=== PATIENT | male | born 1960 | race Caucasian/White ===

== ENCOUNTER → 2017-11-16 15:11 | Outpatient (CLI) | payer BC, SELFPAY ==
[2017-11-16 16:01] LABS: Hemoglobin A1c 7.5 % (4.2-6.3)
[2017-11-16 16:06] LABS: BUN 19 mg/dL (7-18); Creatinine, Serum 0.78 mg/dL (0.70-1.30); EST Glomerular Filtration Rate 108 mL/min (>60); Glucose 115 mg/dL (74-106)
[2017-11-16 16:07] LABS: ALB/GLOB Ratio 1.5 RATIO (0.9-2.4); AST(SGOT) 21 U/L (15-37); Alanine Aminotransfer ALT/SGPT 32 U/L (16-61); Alkaline Phosphatase 60 U/L (45-117); Anion Gap 10 (5-15); BUN/Creat Ratio 24.2 RATIO (10-20); Calcium,Total 8.5 mg/dL (8.5-10.1); Chloride 106 mmol/L (98-107); Cholesterol 195 mg/dL (200); Est Glom Filt Rate - Afr Amer 131 mL/min (>60); Globulin 2.6 g/dL (2.2-4.2); High Density Lipoprotein 38 mg/dL; Magnesium 2.1 mg/dL (1.6-2.6); Potassium 4.5 mmol/L (3.5-5.1); Protein, Total 6.6 g/dL (6.4-8.2); Sodium Level 141 mmol/L (136-145); Triglycerides 208 mg/dL; Very Low Density Lipoprotein 42 mg/dL (5-40)
[2017-11-16 16:39] LABS: Microalbumin,Random Urine 11.5 mg/L (NO RANGE EST.); Microalbumin:Creatinine Ratio 5.3 mg/g CRE (<30 mg/g CRE)
== END ==
PROVIDERS: Family Provider Family Medicine; PCP Family Medicine; Visit Provider Family Medicine
DX: E11.9 Type 2 diabetes mellitus without complications (principal); E83.42 Hypomagnesemia
CPT/HCPCS: 80053; 80061; 82043; 82570; 83036; 83735

== ENCOUNTER → 2018-05-10 09:31 | Outpatient (CLI) | payer BC, SELFPAY ==
--- NOTE | 2018-05-10 09:37 | RAD_ITS ---
STUDY: X-RAY - LUMBAR SPINE REASON FOR EXAM: Male, 58 years old. Low back pain for 2 weeks, getting worse with pain radiating down left leg. TECHNIQUE: 5 view(s) of the lumbar spine were obtained. COMPARISON: None FINDINGS: Normal lumbar lordosis. There is no substantial scoliosis. There is a normal alignment of the vertebrae. There is multilevel endplate spondylosis of the lumbar vertebrae. There is moderate narrowing of the L5-S1 intervertebral disc height, and degenerative calcification suggested along the anterior margin of the L1-2 disc space. There is mild anterior wedging of the L1 vertebra, but no displaced fracture. 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 Borderline shortening of the pedicular length is at L2. There are mild multilevel degenerative changes of the lumbar facet articulations. There is mild atherosclerotic calcification of the abdominal aorta. RAD/L/S Spine Min 4 Views IMPRESSION: Degenerative changes of the spine, as detailed above. Mild anterior wedging of the L1 vertebra, age uncertain. Electronically Signed: Johnny Pizano MD at 19:57 EDT , Service support ,
== END ==
PROVIDERS: Family Provider Family Medicine; PCP Family Medicine; Referring Provider Chiropractor; Visit Provider Chiropractor
DX: S33.5XXA Sprain of ligaments of lumbar spine, initial encounter (principal)
CPT/HCPCS: 72110

== ENCOUNTER 2018-08-03 17:30 | Outpatient (RCR) | payer BC, SELFPAY ==
--- NOTE | 2018-05-16 16:06 | HP.PTEVAL ---
Patient's Visit Information AILYN IGLESIAS is a 58 year old M referred to Physical Therapy by Qamar Grewal with a diagnosis of LUMNAR DISC DISPLACEMNT. Date of Evaluation: 05/16/18 Physical Therapist: Francesco Avery, PT, - Visit Plan Frequency: 3x /Week Duration: 4 Weeks Plan: Intially start Aquatic PT for lumbar ROM,FLEXABLITY,strengthening,DLS then reassess - Subjective Subjective: This 58 y/o male presents to physical therapy wtth lumbar disc displacement. Patient has lumbar for many years with HNP. Most ,recently patient developed lumbar pain about 1 1/2 ago May 05 ,but did have slight pain 2weeks prior.Patient developed incidous onset of pain with trauma or injury. Patient has h/o knee arthroscopic menisectomy about Jun 2017. Patient has to use cane. Patient reinjuried left knee with 12 weeks of PT. Patient has also developed right knee pain. Patient has been seeing chiropractor many years. Patient seen DR allred there is a MRI. Patient have to wait 6weeks before MRI. Location of pain lumbar symmtrical buttuck with radular symptoms left leg.Patient c/o pins/needles left foot. Symptoms unable to stand 30 sec ,walking ,bending,lifting. Symptoms some better siiting,MEDS. Coughing/sneezing-. Bowel/bladder -. Pain affects sleeping . Patient pain affects QOL ,ADL'S ,housework activities and job demands. VOCATION: [employer]. SOCIAL: - Pain Bilateral Back Pain Intensity (Out of 10): 6 Pain Intensity Range: 10 Left Lower Extremity Pain Intensity (Out of 10): 9 Pain Intensity Range: 10 - Objective POSTURE: mild foward posture ,right shift lateral,hips knee flexed. GAIT: ambulates with cane antalgic gait foward posture decrease stance time. NEURO: c/o parathesia/tingling left foot ,reflexes L4-5,L5-S1 1/3. SYMMTRIES: align. MMT: quads/hams 4/5 right,left 4-/5,hip flexion 4-/5,dorsiflexion3+/5 ,great toe extensors 4-/5. LUMBAR ROM: flexion mod loss,extension mod loss,extension mod /severe loss,side glides mod loss. FLEXABLITY: min/mod tight hams - Special Tests L/S Slump test left side: Positive L/S Slump test right side: Negative L/S Left Straight Leg Raise: Negative L/S Right Straight Leg Raise: Negative Lumbar Standing: Flexion - Mechanical Response: No effect Lumbar Standing: Flexion - Symptoms During Testing: Increases Lumbar Standing: Flexion - Symptoms After Testing: No worse Lumbar Standing: Extension - Mechanical Response: No effect Lumbar Standing: Extension - Symptoms During Testing: Increases Lumbar Standing: Extension - Symptoms After Testing: Worse Lumbar Standing: Right Side Glides - Mechanical Response: No effect Lumbar Standing: Right Side [place] - Symptoms During Testing: No effect Lumbar Standing: Right Side [place] - Symptoms After Testing: No effect Lumbar Standing: Left Side [place] - Mechanical Response: No effect Lumbar Standing: Left Side [place] - Symptoms During Testing: No effect Lumbar Standing: Left Side [place] - Symptoms After Testing: No effect Lumbar Lying: Flexion - Mechanical Response: No effect Lumbar Lying: Flexion - Symptoms During Testing: Decreases Lumbar Lying: Flexion - Symptoms After Testing: Better Lumbar Lying: Extension - Mechanical Response: No effect Lumbar Lying: Extension - Symptoms During Testing: Increases Lumbar Lying: Extension - Symptoms After Testing: Worse - Goals Goal 1:: Inadependant with HEP and Aquatic program. Goal Time Frame: 4-6 Weeks Goal 2:: Pateint bto be Independant with posture/body mechanics Goal Time Frame: 4-6 Weeks Goal 3:: Patient to decrease lumbar pain by 50% or greater to improve function Goal 4:: Patient to improve lumbar ROM for function of recovery Goal Time Frame: 4-6 Weeks Goal 5:: Patient improve quality of gait with less antlagic gait and improve posture. Goal Time Frame: 4-6 Weeks Goal 6:: Patient be able to perform ADL'S and housework tasks/job demnads with min limiations. Goal Time Frame: 4-6 Weeks - Rehabilitation Potential Rehabilitation Potential: Good - Anticipated Interventions Patient/Client Instruction: Educate patient on: Condition, Plan of Care For the Purpose of:: To decrease pain, To increase ROM, To improve muscle performance and motor function, To improve ability to perform ADL's, To improve performance and independence with ADL's, To improve ability of physical actions for home/community/work/leisure, To improve health of tissue, To decrease soft tissue restriction, To increase flexibility/ROM, To reduce risk of recurrence, To prevent re-injury, To improve ability to perform tasks related to life management Therapeutic Exercise to Include: Strength training, Body mechanics, Postural training, Flexibilty training, In an aquatic setting, Passive ROM, Active ROM, Dynamic Lumbar Stabilization For the Purpose of:: To decrease pain, To increase ROM, To improve muscle performance and motor function, To improve ability to perform ADL's, To increase tolerance to activity/condition/position, To improve ability of physical actions for home/community/work/leisure, To improve health of tissue, To decrease soft tissue restriction, To increase flexibility/ROM, To improve safety with gait, To improve ability to perform tasks related to life management TENS: Yes IF ES: Yes Cryotherapy (ice pack, ice massage): Yes Thermo therapy (hot pack): Yes Ultrasound (thermal/non thermal): Yes For the Purpose of:: To decrease pain, To increase ROM, To improve nutrient delivery to tissue, To increase oxygenation perfusion, To improve health of tissue, To decrease soft tissue restriction, To improve ability to perform tasks related to life management Thank you for the opportunity to evaluate your patient. For Medicare and Medicare HMO plans, please review the plan of care and approve it. It will need to be FAXED BACK to us at [phone] for Medicare purposes. Please let me know if there are questions or concerns regarding this plan of care. Physician Signature: Date:
--- NOTE | 2018-09-11 17:47 | HP.PT.NRP ---
HP - Discharge Summary (1) - Patient Information AILYN IGLESIAS was seen in my office for initial evaluation on 05/16/18. The following Plan of Care was established for this patient: Initial Frequency: 3x /Week Initial Duration: 4 Weeks - Anticipated Interventions Patient/Client Instruction: Educate patient on: Condition, Plan of Care For the Purpose of:: To decrease pain, To increase ROM, To improve muscle performance and motor function, To improve ability to perform ADL's, To improve performance and independence with ADL's, To improve ability of physical actions for home/community/work/leisure, To improve health of tissue, To decrease soft tissue restriction, To increase flexibility/ROM, To reduce risk of recurrence, To prevent re-injury, To improve ability to perform tasks related to life management Therapeutic Exercise to Include: Strength training, Body mechanics, Postural training, Flexibilty training, In an aquatic setting, Passive ROM, Active ROM, Dynamic Lumbar Stabilization For the Purpose of:: To decrease pain, To increase ROM, To improve muscle performance and motor function, To improve ability to perform ADL's, To increase tolerance to activity/condition/position, To improve ability of physical actions for home/community/work/leisure, To improve health of tissue, To decrease soft tissue restriction, To increase flexibility/ROM, To improve safety with gait, To improve ability to perform tasks related to life management TENS: Yes IF ES: Yes Cryotherapy (ice pack, ice massage): Yes Thermo therapy (hot pack): Yes Ultrasound (thermal/non thermal): Yes For the Purpose of:: To decrease pain, To increase ROM, To improve nutrient delivery to tissue, To increase oxygenation perfusion, To improve health of tissue, To decrease soft tissue restriction, To improve ability to perform tasks related to life management This patient was last seen in our office . Pertinent comments regarding their Physical therapy will appear below: Patient had lumbar disectomy thus is d/c and will resume PT with order from DR Sanchez thus is d/c. At this point I will be discontinuing this patient from physical therapy. I would be happy to see this patient again in the future if found appropriate by the physician. Thank you! Francesco Avery, PT, Cert MDT, OCS
== END 2018-08-03 19:00 | disposition home or self-care (01) ==
LOC: PT 17:30
PROVIDERS: Family Provider Family Medicine; PCP Family Medicine; Referring Provider Chiropractor; Visit Provider Chiropractor
DX: M51.26 Other intervertebral disc displacement, lumbar region (principal)
CPT/HCPCS: 97113; 97162; 97530

== ENCOUNTER → 2018-08-23 14:59 | Outpatient (CLI) | payer BC, SELFPAY ==
[2018-08-23 15:22] LABS: Absolute Lymphocyte Count 1.76 X10^3/ul (0.83-4.51); Absolute Neutrophil Count 3.3 X10^3/uL (2.0-7.7); Basophil# 0.01 X10^3/uL; Basophil% 0.2 % (0-1); Eosinophil# 0.11 X10^3/uL; Eosinophils% 1.9 % (0-5); Hematocrit 44.9 % (40-54); Hemoglobin 14.5 g/dl (13.0-16.5); Lymphocyte # 1.76 X10^3/ul (4.0); Lymphocyte % 29.8 % (19-41); Mean Corp Hgb Conc 32.3 g/gl (32-36); Mean Corpuscular Volume 96.1 fL (80-94); Mean Platelet Vol. 9.9 fl (6.2-12.0); Monocyte# 0.73 X10^3/uL; Monocyte% 12.4 % (0-10); Neutrophil # 3.28 X10^3/uL (2.7-7.7); Neutrophil % 55.4 % (47-70); Platelet Count 250 K/mm3 (150-450); RBC Distribution Width CV 13.4 % (11.6-14.6); RBC Distribution Width SD 46.4 fl (35.1-43.9); Red Blood Count 4.67 M/mm3 (4.6-6.2); White Blood Count 5.9 K/mm3 (4.4-11.0)
[2018-08-23 15:31] LABS: ALB/GLOB Ratio 1.2 RATIO (0.9-2.4); AST(SGOT) 13 U/L (15-37); Alanine Aminotransfer ALT/SGPT 31 U/L (16-61); Alkaline Phosphatase 71 U/L (45-117); Anion Gap 7 (5-15); BUN 15 mg/dL (7-18); Chloride 106 mmol/L (98-107); Cholesterol 205 mg/dL (200); Creatinine, Serum 0.88 mg/dL (0.70-1.30); EST Glomerular Filtration Rate 94 mL/min (>60); Est Glom Filt Rate - Afr Amer 114 mL/min (>60); Globulin 3.3 g/dL (2.2-4.2); Glucose 117 mg/dL (74-106); High Density Lipoprotein 42 mg/dL; Magnesium 1.9 mg/dL (1.6-2.6); Protein, Total 7.3 g/dL (6.4-8.2); Sodium Level 141 mmol/L (136-145); Triglycerides 185 mg/dL; Very Low Density Lipoprotein 37 mg/dL (5-40)
[2018-08-23 15:42] LABS: POSITIVE COUNT NO; POSITIVE DIFFERENTIAL NO; POSITIVE MORPHOLOGY NO
[2018-08-23 15:53] LABS: Microalbumin,Random Urine 9.4 mg/L (NO RANGE EST.)
[2018-08-23 15:57] LABS: Hemoglobin A1c 6.5 % (4.2-6.3)
== END ==
PROVIDERS: Family Provider Family Medicine; PCP Family Medicine; Referring Provider Family Medicine; Visit Provider Family Medicine
DX: E11.9 Type 2 diabetes mellitus without complications (principal); E78.1 Pure hyperglyceridemia; E66.9 Obesity, unspecified; E83.42 Hypomagnesemia
CPT/HCPCS: 80053; 80061; 82043; 82570; 83036; 83735; 85025

== ENCOUNTER 2018-11-16 17:30 | Outpatient (RCR) | payer BC, SELFPAY ==
--- NOTE | 2018-09-13 17:47 | HP.PTEVAL_ITS ---
Patient's Visit Information AILYN IGLESIAS is a 58 year old M referred to Physical Therapy by FABBY Madden with a diagnosis of OTHER SPECIFIED AFTERCACRE FOLLOWING SURGERY. Date of Evaluation: 09/13/18 Physical Therapist: Francesco Avery, PT, Cert MDT, OCS - Visit Plan Frequency: 2x /Week Duration: 4 Weeks Plan: POSTURAL EX'S,DLS ABD /BACK,E FLEXABLITY LE ,PRES'S,ROM - Subjective Findings: This 58 y/o male presents to physical therapy with left microdisectomy L4-5 on 08/28/[address] Carlton Sanchez at [facility] d/c same day.Patient had back brace and uses cane. Prior t surgery patient was in Aquatic PT . Patient has had lumbar pain with radicular symptoms Apr 2018 with symptoms progressively worse. Patient seen chiropractor. Patient then had MRI . Currently ,inscion pain and ocassioanl left lateral hip pain . These symptoms beconmes worse with standing ,walking. Patient sleeping good . Bowel/bladder good. Patient denies parathesia/tingling. Patient use cane for knee pain and balance. Patient surgery impairs ADL'S and QOL. VOCATION: [employer]. SOCAIL: - Pain Bilateral Back Pain Intensity (Out of 10): 1 Pain Intensity Range: 10 - Objective POSTURE:mild foward posture. GAIT: ambulated in PT edp no device with improved cadnce mild decrease stance time left side reciprocal pattern. NEURO: denies parathesa/tingling,reflexes L3-4,L4-5,L5-S1 2/3. INSCION: well approxiamte. SYMMTRIES: align. FLEXABLITY: hams min tight. MMT: quads/hams 4/5,hip flexion 4-5.ankle 4/5. LUMBAR ROM: flexion mod loss,mod loss,side glides min - Special Tests L/S Slump test left side: Negative L/S Slump test right side: Negative L/S Left Straight Leg Raise: Negative L/S Right Straight Leg Raise: Negative - Goals Goal 1:: Patient to be Independant with HEP Goal Time Frame: 4-6 Weeks Goal 2:: Patient to be Independant with posture/body mechanics Goal Time Frame: 4-6 Weeks Goal 3:: Patient to decrease low back pain by 70% or greater to improve function. Goal Time Frame: 4-6 Weeks Goal 4:: Patient to improve lumbar ROM for function of recovery Goal Time Frame: 4-6 Weeks Goal 5:: Patient to improve REY back owsestry score by 5 points or greater to improve function. Goal Time Frame: 4-6 Weeks - Rehabilitation Potential Physical Therapy Diagnosis: This patient undewent s/p lumbar disectomy L4-5 with decrease ROM ,strength,function ,strength and impaired gait thus benifit from skilled PT Rehabilitation Potential: Good - Anticipated Interventions Patient/Client Instruction: Educate patient on: Condition, Plan of Care For the Purpose of:: To decrease pain, To increase ROM, To improve muscle performance and motor function, To improve ability to perform ADL's, To increase tolerance to activity/condition/position, To improve ability of physical actions for home/community/work/leisure, To improve health of tissue, To decrease soft tissue restriction, To increase flexibility/ROM, To improve balance, To reduce risk of recurrence, To improve ability to perform tasks related to life management Therapeutic Exercise to Include: Strength training, Postural training, Flexibilty training, Dynamic Lumbar Stabilization For the Purpose of:: To decrease pain, To increase ROM, To improve muscle performance and motor function, To improve ability to perform ADL's, To increase tolerance to activity/condition/position, To improve performance and independence with ADL's, To improve ability of physical actions for home/community/work/leisure, To improve health of tissue, To decrease soft tissue restriction, To increase flexibility/ROM, To improve health and function, To improve ability to perform tasks related to life management Thank you for the opportunity to evaluate your patient. For Medicare and Medicare HMO plans, please review the plan of care and approve it. It will need to be FAXED BACK to us at [phone] for Medicare purposes. For Medicare only, by signing this I certify the plan of care. Please let me know if there are questions or concerns regarding this plan of care. Physician Signature: Date:
--- NOTE | 2018-11-16 18:04 | HP.PTDCSUM ---
HP - PT D/C Summary It has been my pleasure to treat AILYN IGLESIAS under orders from FABBY Madden, for the diagnosis of OTHER SPECIFIED AFTERCACRE FOLLOWING SURGERY for a total of 15 visit(s). Discharge Date: 11/16/18 Please see the following information for a summary of their discharge status. - Subjective Subjective: DOING WELL.. NO BACK PAIN . RETURN TO PRIOR LEVEL OF FUNCTION,. WALKS WITH CANE ONLY BECAUSE OF KNEE PAIN. - Pain Bilateral Back Pain Intensity (Out of 10): 0 Bilat Knees Pain Intensity (Out of 10): 3 - Overall Improvement % Improvement: 99 - Objective Objective/Function: POSTURE:WFL. GAIT: normal all. MMT: BLE 4/5. LUMBAR ROM: flex,side bending min ,extension WFL - Goals Goal 1:: Patient to be Independant with HEP Goal Progress: Goal Met Goal 2:: Patient to be Independant with posture/body mechanics Goal Progress: Goal Met Goal 3:: Patient to decrease low back pain by 70% or greater to improve function. Goal Progress: Goal Met Goal 4:: Patient to improve lumbar ROM for function of recovery Goal Progress: Goal Met Goal 5:: Patient to improve REY back owsestry score by 5 points or greater to improve function. Goal Progress: Goal Met - Plan Plan: D/C TO HEP - D/C Information Discharge Comments: HEP If there are questions or concerns regarding this patient's physical therapy, please feel free to call me at [phone]. Thank you for the referral of this patient. Sincerely, Francesco Avery, PT, Cert MDT, OCS
== END 2018-11-16 19:00 | disposition home or self-care (01) ==
LOC: PT 17:30
PROVIDERS: Family Provider Family Medicine; PCP Family Medicine; Referring Provider Nurse Practitioner Acute Care; Visit Provider Nurse Practitioner Acute Care
DX: Z48.89 Encounter for other specified surgical aftercare (principal)
CPT/HCPCS: 97110; 97162; 97530

== ENCOUNTER → 2019-03-20 | Outpatient (CLI) | payer BC, SELFPAY ==
--- NOTE | 2019-03-20 08:43 | US_ITS ---
STUDY: ABDOMINAL ULTRASOUND -left UPPER QUADRANT REASON FOR VISIT: Male, 58 years old. Abdominal distention TECHNIQUE: Ultrasound evaluation of the right upper quadrant was performed with real-time and static [place]-scale imaging. TECHNICAL QUALITY: Adequate. COMPARISON: None. FINDINGS: Spleen: Borderline splenomegaly measuring 12.5 x 4.3 x 3.2 cm demonstrating homogeneous echogenicity without focal mass. Left Kidney: Normal size of the right kidney. The right kidney measures 11.2 x 5 x 6.5 cm. Normal renal cortex. The right cortex measures 2.7 cm. There is no demonstrated renal mass or cyst. There is no right hydronephrosis. US/Abdomen Limited IMPRESSION: Borderline splenomegaly. Normal left kidney. Electronically Signed: Pete Ríos MD at 16:58 EDT , Service support ,
== END | disposition home or self-care (01) ==
LOC: US 08:41
PROVIDERS: Family Provider Family Medicine; PCP Family Medicine; Referring Provider Family Medicine; Visit Provider Family Medicine
DX: R14.0 Abdominal distension (gaseous) (principal)
CPT/HCPCS: 76705

== ENCOUNTER → 2019-04-18 | Outpatient (CLI) | payer BC, SELFPAY ==
--- NOTE | 2019-04-18 10:35 | NEURO_ITS ---
NCS and/or EMG Patient Report Ordering Doctor: Chris Argueta DATE OF SERVICE: 04/18/19 This is a right upper extremity EMG and nerve conduction study performed on this 58-year-old male with abnormal sensations in the first 4 digits of both hands worse on the right side for greater than 1 year. Right upper extremity sensory and motor nerve conduction study demonstrates severe prolongation of the median motor and sensory distal latencies with reduction of amplitude and conduction velocities. The ulnar motor and sensory and radial sensory responses are normal. The right median F wave latency is prolonged compared to the right ulnar F-wave latency. Right upper extremity needle electromyography was performed. Muscles evaluate include the abductor pollicis brevis, first dorsal interosseous, brachioradialis, biceps, triceps and deltoid muscles. The osseous brevis muscle did demonstrate increased insertional activity with large motor units and an occasional fibrillation potential. All other muscles demonstrate normal insertional activity with absence of pathologic spontaneous activity. Motor unit potential recruitment pattern and amplitude was otherwise normal. 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 Dictated using [email or web address] software not proofread
== END | disposition home or self-care (01) ==
LOC: PSN 07:02
PROVIDERS: Family Provider Family Medicine; PCP Family Medicine; Referring Provider Family Medicine; Visit Provider Family Medicine
DX: R20.2 Paresthesia of skin (principal)
CPT/HCPCS: 95886; 95909

== ENCOUNTER → 2019-10-11 13:41 | Outpatient (CLI) | payer BC, SELFPAY ==
[2019-10-11 14:22] LABS: Ferritin 69 ng/mL (26-388); Rheumatoid Factor < 10.0 IU/mL (<15)
[2019-10-11 14:56] LABS: Hepatitis C Antibody Non-Reactive (Nonreactive)
[2019-10-12 16:10] LABS: ANTINUCLEAR ANTIBODIES DIRECT Negative (Negative)
[2019-10-13 00:14] LABS: Transferrin 293 mg/dL (200-370)
== END ==
PROVIDERS: PCP Family Medicine; Referring Provider Family Medicine; Visit Provider Family Medicine
DX: M25.50 Pain in unspecified joint (principal); R16.1 Splenomegaly, not elsewhere classified
CPT/HCPCS: 82728; 84466; 86038; 86225; 86235; 86431; 86803

== ENCOUNTER → 2020-08-19 10:24 | Outpatient (CLI) | payer OTHER, SELFPAY ==
[2020-08-19 10:36] LABS: Absolute Lymphocyte Count 1.58 X10^3/uL (0.83-4.51); Absolute Neutrophil Count 2.4 X10^3/uL (2.0-7.7); Basophil# 0.02 X10^3/uL; Basophil% 0.4 % (0-1); Eosinophil# 0.12 X10^3/uL; Eosinophils% 2.5 % (0-5); Hematocrit 46.9 % (40-54); Hemoglobin 15.1 g/dL (13.0-16.5); Lymphocyte # 1.58 X10^3/ul (4.0); Lymphocyte % 33.2 % (19-41); Mean Corp Hgb Conc 32.2 g/dL (32-36); Mean Corpuscular Hgb 30.9 pg (27.0-32.0); Mean Corpuscular Volume 96.1 fL (80-94); Mean Platelet Vol. 9.8 fl (6.2-12.0); Monocyte# 0.62 X10^3/uL; NRBC Flagged by Analyzer 0 % (0-5); Neutrophil # 2.38 X10^3/uL (2.7-7.7); Neutrophil % 50.1 % (47-70); Platelet Count 246 K/mm3 (150-450); RBC Distribution Width CV 12.6 % (11.6-14.6); RBC Distribution Width SD 44.7 fl (35.1-43.9); Red Blood Count 4.88 M/mm3 (4.6-6.2); White Blood Count 4.8 K/mm3 (4.4-11.0)
[2020-08-19 10:55] LABS: ALB/GLOB Ratio 1.2 RATIO (0.9-2.4); AST(SGOT) 12 U/L (15-37); Alanine Aminotransfer ALT/SGPT 37 U/L (16-61); Albumin, Serum 3.8 g/dL (3.2-5.0); Alkaline Phosphatase 81 U/L (45-117); Anion Gap 7 (5-15); BUN 20 mg/dL (7-18); BUN/Creat Ratio 20.5 RATIO (10-20); Calcium,Total 8.8 mg/dL (8.5-10.1); Chloride 109 mmol/L (98-107); Cholesterol 215 mg/dL (200); Creatinine, Serum 0.97 mg/dL (0.70-1.30); EST Glomerular Filtration Rate 83 mL/min (>60); Est Glom Filt Rate - Afr Amer 101 mL/min (>60); Globulin 3.2 g/dL (2.2-4.2); Glucose 176 mg/dL (74-106); High Density Lipoprotein 40 mg/dL; PSA,Total - Annual Screen 0.59 ng/mL (0.00-4.00); Potassium 4.2 mmol/L (3.5-5.1); Sodium Level 142 mmol/L (136-145); Triglycerides 188 mg/dL; Very Low Density Lipoprotein 38 mg/dL (5-40)
[2020-08-19 10:58] LABS: Microalbumin,Random Urine 10.9 mg/L (NO RANGE EST.); Microalbumin:Creatinine Ratio 5.4 mg/g CRE (<30 mg/g CRE)
[2020-08-19 11:01] LABS: Hemoglobin A1c 7.2 % (3.8-5.6)
== END ==
PROVIDERS: PCP Family Medicine; Visit Provider Family Medicine
DX: Z00.00 Encounter for general adult medical examination without abnormal findings (principal); E11.9 Type 2 diabetes mellitus without complications; Z12.5 Encounter for screening for malignant neoplasm of prostate
CPT/HCPCS: 80053; 80061; 82043; 82570; 83036; 84153; 85025; G0103

== ENCOUNTER 2020-10-24 14:00 | Outpatient (RCR) | payer OTHER, SELFPAY ==
[2020-10-24] MEDS: COVID-19 VACC, MRNA(PFIZER)/PF 30 MCG/0.3 ML SYRINGE IM (17:43)
[2020-11-14] MEDS: COVID-19 VACC, MRNA(PFIZER)/PF 30 MCG/0.3 ML SYRINGE IM (17:41)
== END 2020-10-24 23:59 ==
LOC: IMMUN 14:00
PROVIDERS: PCP Family Medicine; Visit Provider Family Medicine
DX: Z23 Encounter for immunization (principal)
CPT/HCPCS: 0001A; 0002A; 91300

== ENCOUNTER 2023-07-14 17:30 | Outpatient (RCR) | payer BC, SELFPAY ==
--- NOTE | 2023-06-13 19:04 | HP.PTEVAL_ITS ---
Patient's Visit Information Visit Information Visit Information: AILYN IGLESIAS is a 63 year old M referred to Physical Therapy by Dr. Chris Argueta DO with a diagnosis of LOW BACK PAIN. Date of Evaluation: 06/13/23 Physical Therapist: Francesco Avery PT, Cert MDT, OCS Visit Plan Frequency: 2x /Week Duration: 4 Weeks Plan: PT INTEREVTIONS LUIS DANIEL EX'S ,DLS ,POSTURAL EX'S , AND MODALTIES Subjective Subjective: This 63 y/o male presents to physical therapy with low back pain. Patient has h/o lumbar surgery microdiscectomy L4-L[address] Sanchez[address] MRI 2018 showed extrusion. Most recently LBP which has progressively worse right lumbar side . Patient had prior many years ago MRI showed HNP but potentially worsen . Although no recent MRI. Patient seen DR recommended PT and medication try muscle relaxer. Aggravating factors standing/walking uses cane ~ 5mins ,but get some better after 30min subsides, bending/lifting. Alleviating factors sitting ,rest ,lay supine. Patient seen chiropractor in past. Patient has had no pain management. Denies paresthesia/tingling-. Bowel/bladder-. Coughing/sneezing-. Patient sleeping okay. Patient has h/o meniscectomy 2017. Patient mainly uses cane because knee pain. Patient condition affects QOL and function. Patient goals to decrease pain. SOCIAL: VOCATION: [employer] Pain Right Back: Pain Intensity (Out of 10): 5 Pain Intensity Range: 10 Objective Objective: POSTURE: mild forward posture GAIT: reciprocal pattern with straight cane 2 point pattern SYMMTRIES: align PALPATION: tender LS/SI NEURO: denies paresthesia/tingling ,reflexes L3-4 ,L4-5 .L5-S 12/3 MMT: quads/hams 4/5 ,hip flexion 4/5 ,ankle 4/5 LUMBAR ROM : flexion min loss ,extension min loss ,side glides min loss FLEXABILITY: hamstrings min tight Special Tests L/S Slump test left side: Negative L/S Slump test right side: Negative L/S Left Straight Leg Raise: Negative L/S Right Straight Leg Raise: Negative Lumbar Standing: Flexion - Mechanical Response: No effect Lumbar Standing: Flexion - Symptoms During Testing: Increases Lumbar Standing: Flexion - Symptoms After Testing: No worse Lumbar Standing: Extension - Mechanical Response: No effect Lumbar Standing: Extension - Symptoms During Testing: Increases Lumbar Standing: Extension - Symptoms After Testing: No worse Lumbar Standing: Right Side Glides - Mechanical Response: No effect Lumbar Standing: Right Side [place] - Symptoms During Testing: No effect Lumbar Standing: Right Side [place] - Symptoms After Testing: No effect Lumbar Standing: Left Side [place] - Mechanical Response: No effect Lumbar Standing: Left Side [place] - Symptoms During Testing: No effect Lumbar Standing: Left Side [place] - Symptoms After Testing: No effect Lumbar Lying: Flexion - Mechanical Response: No effect Lumbar Lying: Flexion - Symptoms During Testing: Increases Lumbar Lying: Flexion - Symptoms After Testing: No worse Lumbar Lying: Extension - Mechanical Response: No effect Lumbar Lying: Extension - Symptoms During Testing: Decreases Lumbar Lying: Extension - Symptoms After Testing: No better Balance/Special Test Scores Oswestry Low Back Score: 23 Goals Goal 1:: Patient to be I with HEP for back Goal Time Frame: 4-6 Weeks Goal 2:: Patient to demonstrate 50% improvement with decrease pain and and improved function Goal Time Frame: 4-6 Weeks Goal 3:: Patient to improve lumbar ROM for function of recovery to tie shoes Goal Time Frame: 4-6 Weeks Goal 4:: Patient to improve back oswestry score by 5 points to improve function and QOL Goal Time Frame: 4-6 Weeks Rehabilitation Potential Physical Therapy Diagnosis: Patient has lumbar derangement with pain right side with h/o lumbar discectomy 2018 with current symptoms worse with positioning and motion testing ,worse with walking /standing thus benefit from skilled PT Rehabilitation Potential: Good Anticipated Interventions Patient/Client Instruction: Educate patient on: Condition and Plan of Care For the Purpose of:: To decrease pain, To increase ROM, To improve muscle performance and motor function, To improve ability to perform ADL's, To increase tolerance to activity/condition/position, To improve ability of physical actions for home/community/work/leisure, To improve health of tissue, To decrease soft tissue restriction and To increase flexibility/ROM Therapeutic Exercise to Include: Strength training, Body mechanics, Postural training, Flexibilty training, Dynamic Lumbar Stabilization and Luis Daniel Exercises For the Purpose of:: To decrease pain, To increase ROM, To improve muscle performance and motor function, To increase tolerance to activity/condition/position, To improve ability of physical actions for home/community/work/leisure, To improve health of tissue, To decrease soft tissue restriction and To increase flexibility/ROM TENS: Yes IF ES: Yes Cryotherapy (ice pack, ice massage): Yes Thermo therapy (hot pack): Yes Ultrasound (thermal/non thermal): Yes For the Purpose of:: To decrease pain, To increase ROM, To improve health of tissue, To decrease soft tissue restriction and To increase flexibility/ROM Text: Thank you for the opportunity to evaluate your patient. For Medicare and Medicare HMO plans, please review the plan of care and approve it. It will need to be FAXED BACK to us at [phone] for Medicare purposes. For Medicare only, by signing this I certify the plan of care. Please let me know if there are questions or concerns regarding this plan of care. Physician Signature: Date:
--- NOTE | 2023-11-25 12:16 | HP.PTDCSUM ---
Discharge Summary D/C summary: It has been my pleasure to treat AILYN IGLESIAS referred by Dr. Chris Argueta DO, with the diagnosis of LOW BACK PAIN for a total of 9 visit(s). Discharge Date: 07/14/23 Please see the following information for a summary of their discharge status. Subjective Subjective: pain with standing ~ 5mins and walking 5mins 8-9 /10 Pain Right Back: Pain Intensity (Out of 10): 6 Overall Improvement % Improvement: 20 Objective Objective/Function: POSTURE: mild forward posture GAIT: reciprocal pattern with straight cane 2 point pattern SYMMTRIES: align PALPATION: tender LS/SI NEURO: denies paresthesia/tingling ,reflexes L3-4 ,L4-5 ,L5-S 2/3 MMT: quads/hams 4/5 ,hip flexion 4/5 ,ankle 4/5 LUMBAR ROM : flexion min loss ,extension min loss ,side glides min loss FLEXABILITY: hamstrings min tight Goals Goal 1:: Patient to be I with HEP for back Goal Progress: Progressing Goal 2:: Patient to demonstrate 50% improvement with decrease pain and and improved function Goal Progress: Progressing Goal 3:: Patient to improve lumbar ROM for function of recovery to tie shoes Goal Progress: Progressing Goal 4:: Patient to improve back oswestry score by 5 points to improve function and QOL Goal Progress: Progressing Plan Plan: D/C RTD D/C Information Discharge Comments: HEP d/c sentence: If there are questions or concerns regarding this patient's physical therapy, please feel free to call me at [phone]. Thank you for the referral of this patient. Sincerely, Francesco Avery, PT, Cert MDT, OCS Balance/Gait/Functional tests Balance/Special Test Scores Oswestry Low Back Score: 22 Improvement % Improvement: 20
== END 2023-07-14 19:00 | disposition home or self-care (01) ==
LOC: PT 17:30
PROVIDERS: PCP Family Medicine; Referring Provider Family Medicine; Visit Provider Family Medicine
DX: M47.816 Spondylosis without myelopathy or radiculopathy, lumbar region (principal); M51.26 Other intervertebral disc displacement, lumbar region
CPT/HCPCS: 97110; 97162; 97530

== ENCOUNTER 2023-11-10 17:30 | Outpatient (RCR) | payer BC, SELFPAY ==
--- NOTE | 2023-10-03 19:32 | HP.PTEVAL ---
Patient's Visit Information Visit Information Visit Information: AILYN IGLESIAS is a 63 year old M referred to Physical Therapy by FALLON GARCIA with a diagnosis of OTHER INTERERTEBRAL DISC DISPLACEMENT LUMBAR REGION. Date of Evaluation: 10/03/23 Physical Therapist: Francesco Avery, PT, Cert MDT, OCS Visit Plan Frequency: 2x /Week Duration: 4 Weeks Plan: S/P LUMBAR SURGERY 09/07/23 PT INTERVTIONS DLS ,POTURAL EX'S ,LE FLEXABILITY ,BLE STRENGTHENING AND ACTIVITY MODIFICATION Subjective Subjective: This 63 y/o male presents to physical therapy with lumbar laminectomy and microdiscectomies Revision L4-5 and L5-S1 on 08/31/23 at [facility] done by DR Sanchez . Patient d/c next day lumbar brace. Seen DR 2weeks later Sep 20 d/c brace. Restriction no lifting more than 10# and no BLT. Patient has min pain just soreness . Denies paresthesia/tingling. Sleeping good at night. Bowel /bladder good. Patient aggravating factors extended standing ,difficulty with bending .Patient was off work 08/16 and return to work. Patient had PT prior to surgery and had leg and back pain and MRI. Patient has had prior surgery L4-L5 microdiscectomy . Patient medication gabapentin. Patient condition affects QOL and function . Patient goals to get stronger. SOCAIL: VOCATION: [employer] Pain Bilateral Back: Pain Intensity (Out of 10): 0 Pain Intensity Range: 10 Objective Objective: POSTURE: mild forward posture GAIT: reciprocal pattern 2 point gait slow all SKIN: incision well approximate NEURO: denies paresthesia/tingling ,reflexes L3-4,L4-5,L5-S1 1/3 SYMMTRIES: align MMT: quads/hams 4/5 ,ankle 5/5 ,( peak force) hip flexion right 38.5 ,left 42.8 FLEXABILITY: hamstrings min tight LUMBAR ROM: flexion mod loss ,extension min/mod loss ,side glides min glides Special Tests L/S Slump test left side: Negative L/S Slump test right side: Negative L/S Left Straight Leg Raise: Negative L/S Right Straight Leg Raise: Negative Balance/Special Test Scores Oswestry Low Back Score: 16 Goals Goal 1:: Patient to be I with HEP Goal Time Frame: 4-6 Weeks Goal 2:: Patient to improve lumbar ROM for function of recovery to tie shoes and ADLS Goal Time Frame: 4-6 Weeks Goal 3:: Patient to improve back oswestry score by 5 points to improve QOL and function Goal Time Frame: 4-6 Weeks Goal 4:: Patient to demonstrate 50% improvement with less pain and improved function Goal Time Frame: 4-6 Weeks Goal 5:: Patient to improve peak force of hips by 5-10# to improve function and ADLS Goal Time Frame: 4-6 Weeks Rehabilitation Potential Physical Therapy Diagnosis: This patient under went revision right L4 ,L5 and S1 unilateral laminectomy ,revision L4-5 ,and L5-S1 microdiscectomies ,and foraminotomies 08/31/2023 with pain ,decrease ROM lumbar , and strength impairs function ADLS thus benefit from skilled PT Rehabilitation Potential: Good Anticipated Interventions Patient/Client Instruction: Educate patient on: Condition and Plan of Care For the Purpose of:: To decrease pain, To increase ROM, To improve muscle performance and motor function, To improve ability to perform ADL's, To increase tolerance to activity/condition/position, To improve ability of physical actions for home/community/work/leisure, To improve gait and locomotor functions, To improve health of tissue, To decrease soft tissue restriction, To increase flexibility/ROM, To improve endurance and To improve tolerance to ADL's Therapeutic Exercise to Include: Strength training, Endurance training, Postural training, Flexibilty training, Active ROM and Dynamic Lumbar Stabilization For the Purpose of:: To decrease pain, To increase ROM, To improve muscle performance and motor function, To increase tolerance to activity/condition/position, To improve performance and independence with ADL's, To improve ability of physical actions for home/community/work/leisure, To improve health of tissue, To decrease soft tissue restriction, To increase flexibility/ROM and To improve tolerance to ADL's Text: Thank you for the opportunity to evaluate your patient. For Medicare and Medicare HMO plans, please review the plan of care and approve it. It will need to be FAXED BACK to us at [phone] for Medicare purposes. For Medicare only, by signing this I certify the plan of care. Please let me know if there are questions or concerns regarding this plan of care. Physician Signature: Date:
--- NOTE | 2023-11-10 18:01 | HP.PTDCSUM ---
Discharge Summary D/C summary: It has been my pleasure to treat AILYN IGLESIAS referred by FALLON GARCIA, with the diagnosis of OTHER INTERERTEBRAL DISC DISPLACEMENT LUMBAR REGION for a total of 10 visit(s). Discharge Date: Please see the following information for a summary of their discharge status. Subjective Subjective: October 31 dont need to see Dr mooney to d/c Patient ready for d/c Pain Bilateral Back: Pain Intensity (Out of 10): 1 Overall Improvement % Improvement: 90 Objective Objective/Function: POSTURE: mild forward posture GAIT: reciprocal pattern 2 point gait slow all SKIN: incision well approximate NEURO: denies paresthesia/tingling ,reflexes L3-4,L4-5,L5-S1 1/3 SYMMTRIES: align MMT: quads/hams 4/5 ,ankle 5/5 ,( peak force) hip flexion right 44.5 ,left 438 FLEXABILITY: hamstrings min tight LUMBAR ROM: flexion min loss ,extension min loss ,side glides min glides Goals Goal 1:: Patient to be I with HEP Goal Progress: Goal Met Goal 2:: Patient to improve lumbar ROM for function of recovery to tie shoes and ADLS Goal Progress: Goal Met Goal 3:: Patient to improve back oswestry score by 5 points to improve QOL and function Goal Progress: Goal Met Goal 4:: Patient to demonstrate 50% improvement with less pain and improved function Goal Progress: Goal Met Goal 5:: Patient to improve peak force of hips by 5-10# to improve function and ADLS Goal Progress: Progressing Plan Plan: D/C D/C Information d/c sentence: If there are questions or concerns regarding this patient's physical therapy, please feel free to call me at [phone]. Thank you for the referral of this patient. Sincerely, Francesco Avery, PT, Cert MDT, OCS Balance/Gait/Functional tests Balance/Special Test Scores Oswestry Low Back Score: 3 Improvement % Improvement: 90
== END 2023-11-10 19:00 | disposition home or self-care (01) ==
LOC: PT 17:30
PROVIDERS: PCP Family Medicine
DX: M51.26 Other intervertebral disc displacement, lumbar region (principal)
CPT/HCPCS: 97110; 97162; 97530

== ENCOUNTER → 2024-10-05 | Outpatient (CLI) | payer BC, SELFPAY ==
--- NOTE | 2024-10-05 13:45 | CT_ITS ---
PROCEDURE: ABDOMEN W/WO IV CONTRAST REASON FOR EXAM: Abdominal pain. Jaundice. Vomiting. TECHNIQUE: Abdomen CT without and with intravenous contrast. No oral contrast. IV CONTRAST: 100 cc of Isovue-300. COMPARISON: None. FINDINGS: Lung bases: Mild increased linear markings at the lung bases suggestive of scarring and/or atelectasis. Liver: Diffuse fatty infiltration. Gallbladder: Several calcified gallstones. Spleen: Unremarkable. Pancreas: Unremarkable. Adrenals: Unremarkable. Kidneys: Bilateral parapelvic cysts more prominent on the left side. No evidence of hydronephrosis. Bowel: Visualized loops of bowel in the upper abdomen are unremarkable. Lymph nodes: No suspicious lymph node enlargement. Vasculature: Mild diffuse atherosclerotic calcifications are noted. Peritoneum / Retroperitoneum: No ascites or free air at the upper abdomen. Bones: Degenerative changes of the spine. CT/Abdomen W/WO IV Contrast IMPRESSION: Diffuse fatty infiltration of the liver. Multiple gallstones. One or more dose reduction techniques were used (e.g., Automated exposure contr ol, adjustment of the mA and/or kV according to patient size, use of iterative reconstruction technique). Reading Location: [place] [id number]
[2024-10-05 14:36] LABS: CREATININE FINGERSTICK < 1.0 mg/dL (0.70-1.30); EGFR FINGERSTICK > 60.0000 mL/min (>60)
[2024-10-05 14:53] LABS: Absolute Lymphocyte Count 0.98 X10^3/uL (0.83-4.51); Absolute Neutrophil Count 3.8 X10^3/uL (2.0-7.7); Basophil# 0.04 X10^3/uL; Basophil% 0.7 % (0-1); Eosinophil# 0.09 X10^3/uL; Eosinophils% 1.6 % (0-5); Hematocrit 44.2 % (40-54); Hemoglobin 14.9 g/dL (13.0-16.5); Lymphocyte # 0.98 X10^3/ul (0.83-4.51); Lymphocyte % 17.4 % (19-41); Mean Corp Hgb Conc 33.7 g/dL (32-36); Mean Corpuscular Hgb 31.2 pg (27.0-32.0); Mean Corpuscular Volume 92.5 fL (80-94); Mean Platelet Vol. 9.9 fl (6.2-12.0); Monocyte# 0.64 X10^3/uL; Monocyte% 11.4 % (0-10); NRBC Flagged by Analyzer 0 % (0-5); Neutrophil # 3.84 X10^3/uL (2.7-7.7); Neutrophil % 68.2 % (47-70); Platelet Count 323 K/mm3 (150-450); RBC Distribution Width CV 13.5 % (11.6-14.6); RBC Distribution Width SD 46.3 fl (35.1-43.9); Red Blood Count 4.78 M/mm3 (4.6-6.2); White Blood Count 5.6 K/mm3 (4.4-11.0)
[2024-10-05 15:43] LABS: ALB/GLOB Ratio 0.8 RATIO (0.9-2.4); AST(SGOT) 69 U/L (15-37); Alanine Aminotransfer ALT/SGPT 191 U/L (16-61); Albumin, Serum 3.2 g/dL (3.2-5.0); Alkaline Phosphatase 286 U/L (45-117); Anion Gap 10 (5-15); BUN 17 mg/dL (7-18); BUN/Creat Ratio 16.8 RATIO (10-20); Calcium,Total 9.7 mg/dL (8.5-10.1); Chloride 99 mmol/L (98-107); Creatinine, Serum 1.01 mg/dL (0.70-1.30); EST Glomerular Filtration Rate 79 mL/min (>60); Est Glom Filt Rate - Afr Amer 96 mL/min (>60); Glucose 279 mg/dL (74-106); Lipase 16 U/L (73-393); Protein, Total 7.2 g/dL (6.4-8.2); Sodium Level 132 mmol/L (136-145)
[2024-10-07 08:07] LABS: HEPATITIS B SURFACE AG Negative (Negative); Hep C Antibodies Non Reactive (Non Reactive); Hepatitis A IgM Antibody Negative (Negative); Hepatitis B Core AB IgM Negative (Negative)
== END | disposition home or self-care (01) ==
LOC: CT 13:43
PROVIDERS: PCP Family Medicine; Referring Provider Family Medicine; Visit Provider Family Medicine
DX: R10.9 Unspecified abdominal pain (principal); R17 Unspecified jaundice; R63.4 Abnormal weight loss
CPT/HCPCS: 36415; 74170; 80053; 80074; 83690; 85025; Q9967

== ENCOUNTER → 2024-10-10 | Outpatient (CLI) | payer BC, SELFPAY ==
[2024-10-10 15:47] LABS: AST(SGOT) 50 U/L (<=37); Alanine Aminotransfer ALT/SGPT 123 U/L (<=46); Albumin, Serum 4.1 g/dL (3.4-4.8); Alkaline Phosphatase 282 U/L (40-129); Bilirubin, Direct 1.84 mg/dL (0.00-0.30); Globulin 3.2 g/dL (2.2-4.2); PSA,Total - Annual Screen 1.27 ng/mL (0.02-4.00); Protein, Total 7.3 g/dL (5.9-8.4)
== END | disposition home or self-care (01) ==
LOC: LAB 13:59
PROVIDERS: PCP Family Medicine; Referring Provider Family Medicine; Visit Provider Family Medicine
DX: R17 Unspecified jaundice (principal); R74.8 Abnormal levels of other serum enzymes; Z12.5 Encounter for screening for malignant neoplasm of prostate
CPT/HCPCS: 36415; 80076; 84153; G0103

== ENCOUNTER → 2024-10-23 | Outpatient (CLI) | payer BC, SELFPAY ==
[2024-10-23 11:55] LABS: AST(SGOT) 28 U/L (<=37); Alanine Aminotransfer ALT/SGPT 50 U/L (<=46); Albumin, Serum 4.1 g/dL (3.4-4.8); Alkaline Phosphatase 141 U/L (40-129); Bilirubin, Direct 0.62 mg/dL (0.00-0.30); Globulin 2.3 g/dL (2.2-4.2); Protein, Total 6.4 g/dL (5.9-8.4); Total Bilirubin 0.88 mg/dL (0.00-1.30)
[2024-10-23 11:58] LABS: Ammonia 33.2 umol/L (16-60)
[2024-10-24 04:07] LABS: GGTP 386 IU/L (0-65)
== END | disposition home or self-care (01) ==
LOC: LAB 10:47
PROVIDERS: PCP Family Medicine; Referring Provider Family Medicine; Visit Provider Family Medicine
DX: R17 Unspecified jaundice (principal); G93.40 Encephalopathy, unspecified
CPT/HCPCS: 36415; 80076; 82140; 82977

== ENCOUNTER → 2025-07-09 | Outpatient (CLI) | payer BC, SELFPAY ==
[2025-07-09 13:13] LABS: Hematocrit 45.9 % (40-54); Hemoglobin 15.1 g/dL (13.0-16.5); Immature Granulocytes Count 0.050 X10^3/uL (0.0-0.0); Mean Corp Hgb Conc 32.9 g/dL (32-36); Mean Corpuscular Volume 94.4 fL (80-94); Mean Platelet Vol. 10.0 fl (6.2-12.0); NRBC Flagged by Analyzer 0 % (0-5); Platelet Count 292 K/mm3 (150-450); RBC Distribution Width CV 12.7 % (11.6-14.6); RBC Distribution Width SD 44.1 fl (35.1-43.9); Red Blood Count 4.86 M/mm3 (4.6-6.2); White Blood Count 5.6 K/mm3 (4.4-11.0)
--- OUTSIDE RECORDS SUMMARY | 2025-07-09 16:53 | XMS RPT_ITS | CCD ---
Author Organization [facility] Care Team Providers Care Clock Maker Name Role Phone Dr. Chris Argueta DO Primary Care Provider Dr. Chris Argueta DO Attending Provider Dr. Chris Argueta DO Referring Provider [phone] Chris Argueta Referring Unavailable Chris Argueta Primary Care Unavailable Chris Argueta Attending Unavailable Chris Argueta Referring Unavailable Chris Argueta Primary Care Unavailable Chris Argueta Attending Unavailable Assessment, Health Risk Attending Unavaila Marcos Coulter Primary Care Unavaila Chris Flores Attending Unavailable Chris Argueta Referring Unavailable Chris Argueta Primary Care Unavailable Problems Problem Classification Problem Date Documented Da te Episodic/Chronic Abdominal pain (1 source) Unspecified abdominal pain; Translations: [Unspecified abdominal pain] Onset: 10-17-2024 Episodic Other liver diseases (1 source) Unspecified jaundice; Translations: [Unspecified jaundice] Onset: 10-31-2024 Episodic Results Test Name Value Interpretation Reference Range Facility Comprehensive Metabolic Prof idcarol 05-22-2025 Albumin [Mass/Vol] 4.4 g/dL Normal 3.4-4.8 [facility] Comment on above: Performed By: #### L 501.9910, L500.4100, L500.4050 #### [facility] [address] [place], [address] Albumin/Globulin [Mass ratio] 1.7 {ratio} Normal 0.9-2.4 [facility] Comment on above: Performed By: #### L 501.9910, L500.4100, L500.4050 #### [facility] [address] [place], [address] ALK PHOS 71 U/L Normal 40-129 [facility] Comment on above: Performed By: #### L 501.9910, L500.4100, L500.4050 #### [facility] [address] [place], [address] ALT [Catalytic activity/Vol] 24 U/L Normal <=46 [facility] Comment on above: Performed By: #### L 501.9910, L500.4100, L500.4050 #### [facility] [address] [place], [address] AST [Catalytic activity/Vol] 19 U/L Normal <=37 [facility] Comment on above: Performed By: #### L 501.9910, L500.4100, L500.4050 #### [facility] [address] [place], [address] Bilirubin [Mass/Vol] 0.41 mg/dL Normal 0.00-1.30 [facility] Comment on above: Performed By: #### L 501.9910, L500.4100, L500.4050 #### [facility] [address] [place], [address] BUN/CRE 15.2 RATIO Normal 10-20 [facility] Comment on above: Performed By: #### L 501.9910, L500.4100, L500.4050 #### [facility] [address] [place], [address] Calcium [Mass/Vol] 9.4 mg/dL Normal 7.6-11.0 [facility] Comment on above: Performed By: #### L 501.9910, L500.4100, L500.4050 #### [facility] [address] [place], [address] Chloride [Moles/Vol] 103 mmol/L Normal 98-108 [facility] Comment on above: Performed By: #### L 501.9910, L500.4100, L500.4050 #### [facility] [address] [place], [address] CO2 [Moles/Vol] 24.7 mmol/L Normal 21.0-32.0 [facility] Comment on above: Performed By: #### L 501.9910, L500.4100, L500.4050 #### [facility] [address] [place], [address] Creatinine [Mass/Vol] 0.86 mg/dL Normal 0.70-1.20 [facility] Comment on above: Performed By: #### L 501.9910, L500.4100, L500.4050 #### [facility] [address] [place], [address] GAP 13 Normal 5-15 [facility] Comment on above: Performed By: #### L 501.9910, L500.4100, L500.4050 #### [facility] [address] [place], [address] GFR/1.73 sq M.predicted among non-blacks MDRD (S/P/Bld) [Vol rate/Area] 96 mL/min/{1.73_m2} Normal >60 [facility] Comment on above: Result Comment: mL/m in/1.73m2 CKD-EPI Creatinine Equation (2020) Performed By: #### L 501.9910, L500.4100, L500.4050 #### [facility] [address] [place], [address] Globulin (S) [Mass/Vol] 2.5 g/dL Normal 2.2-4.2 [facility] Comment on above: Performed By: #### L 501.9910, L500.4100, L500.4050 #### [facility] [address] [place], [address] Glucose [Mass/Vol] 223 mg/dL High 70-99 [facility] Comment on above: Performed By: #### L 501.9910, L500.4100, L500.4050 #### [facility] [address] [place], [address] Potassium [Moles/Vol] 4.8 mmol/L Normal 3.3-5.1 [facility] Comment on above: Performed By: #### L 501.9910, L500.4100, L500.4050 #### [facility] [address] [place], [address] Sodium [Moles/Vol] 141 mmol/L Normal 133-145 [facility] Comment on above: Performed By: #### L 501.9910, L500.4100, L500.4050 #### [facility] [address] [place], [address] T PROT 6.9 g/dL Normal 5.9-8.4 [facility] Comment on above: Performed By: #### L 501.9910, L500.4100, L500.4050 #### [facility] [address] [place], [address] Urea nitrogen [Mass/Vol] 13 mg/dL Normal 4-19 [facility] Comment on above: Performed By: #### L 501.9910, L500.4100, L500.4050 #### [facility] [address] [place], [address] Lipid Profileon 05-22-2025 CHOL:HDL 5.41 Normal [facility] Comment on above: Performed By: #### L 501.9910, L500.4100, L500.4050 #### [facility] [address] [place], [address] Cholesterol [Mass/Vol] 240 mg/dL High <=200 [facility] Comment on above: Result Comment: Chol esterol level, Desirable <200 mg/dL Borderline high cholesterol 200-239 mg/dL High cholesterol >=240 mg/dL Recommendations of the NCEP Adult Treatment Panel for the following risk-cutoff thresholds for the [place] population. Performed By: #### L 501.9910, L500.4100, L500.4050 #### [facility] [address] [place], [address] Cholesterol in HDL [Mass/Vol] 44 mg/dL Normal [facility] Comment on above: Result Comment: Naomie onal Cholesterol Education Program (NCEP) guidelines: <40 mg/dL: Low HDL-cholesterol (major risk factor for CHD) >= 60 mg/dL: High HDL-cholesterol (negative risk factor for CHD) HDL-cholesterol is affected by a number of factors, e.g. smoking, exercise, hormones, sex and age. Performed By: #### L 501.9910, L500.4100, L500.4050 #### [facility] [address] [place], [address] Cholesterol in LDL [Mass/Vol] 149 mg/dL Normal [facility] Comment on above: Result Comment: Bord ehjfjt=924-078 mg/dL Higher Vhkz=737 mg/dL or greater Friedwald Equation for LDL-C Performed By: #### L 501.9910, L500.4100, L500.4050 #### [facility] [address] [place], [address] Cholesterol in VLDL [Mass/Vol] 47 mg/dL High 5-40 [facility] Comment on above: Performed By: #### L 501.9910, L500.4100, L500.4050 #### [facility] [address] [place], [address] Triglyceride [Mass/Vol] 234 mg/dL High [facility] Comment on above: Result Comment: The drugs N-Acetylcysteine and Metamizole may falsely depress this assay. Normal range: <150 mg/dL Borderline High: 150-199 mg/dL High: 200-499 mg/dL Very High: >500 mg/dL Performed By: #### L 501.9910, L500.4100, L500.4050 #### [facility] [address] [place], [address] PSA,Total - Annual Screenon 05-22-2025 PSA,TOT SCREEN 0.89 ng/mL Normal 0.02-4.00 [facility] Comment on above: Result Comment: This test was performed using the [employer] tPSA method. Measured values of a patient??sample can vary depending on the testing procedure used. PSA values determined on patient samples by different testing procedures cannot be used interchangeably. If there is a change in PSA assays while monitoring therapy, sequential testing should be performed to confirm baseline values. Performed By: #### L 501.9910, L500.4100, L500.4050 #### [facility] [address] [place], [address] L501.5101on 10-24-2024 GGTP 386 IU/L Abnormal 0-65 [facility] Comment on above: Result Comment: Perf ormed at: [facility] [address] [id number] Chemical Instrumentation Officer: Anshu Parrish PhD, Phone: [phone] Performed By: #### L 501.9910, L500.4100, L500.4050 #### [facility] [address] [place], [address] Ammoniaon 10-23-2024 Ammonia (P) [Moles/Vol] 33.2 umol/L Normal 16-60 [facility] Comment on above: Performed By: #### L 501.9910, L500.4100, L500.4050 #### [facility] [address] [place], [address] Bilirubin directOrdered By: Chris Argueta on 10-23-2024 Bilirubin.direct [Mass/Vol] 0.62 mg/dL High 0.00-0.30 [facility] Bilirubin, totalOrdered By: Chris Argueta on 10-23-2024 Bilirubin [Mass/Vol] 0.88 mg/dL 0.00-1.30 [facility] Gamma glutamyl transferase ( GGT) measurementOrdered By: Chris Argueta on 10-23-2024 Amylase [Catalytic activity/Vol] 386 U/L High 0-65 [facility] Comment on above: Performed at: [place] [id number] Director: Anshu Parrish PhD, Phone: [phone] Laboratory - Chemistry and C hemistry - challengeOrdered By: Chris Argueta on 10-23-2024 AST [Catalytic activity/Vol] 28 U/L <38 [facility] Liver Profileon 10-23-2024 Albumin [Mass/Vol] 4.1 g/dL Normal 3.4-4.8 [facility] Comment on above: Performed By: #### L 501.9910, L500.4100, L500.4050 #### [facility] [address] [place], [address] ALK PHOS 141 U/L High 40-129 [facility] Comment on above: Performed By: #### L 501.9910, L500.4100, L500.4050 #### [facility] [address] [place], [address] ALT [Catalytic activity/Vol] 50 U/L High <=46 [facility] Comment on above: Performed By: #### L 501.9910, L500.4100, L500.4050 #### [facility] [address] [place], [address] AST [Catalytic activity/Vol] 28 U/L Normal <=37 [facility] Comment on above: Performed By: #### L 501.9910, L500.4100, L500.4050 #### [facility] [address] [place], [address] Bilirubin [Mass/Vol] 0.88 mg/dL Normal 0.00-1.30 [facility] Comment on above: Performed By: #### L 501.9910, L500.4100, L500.4050 #### [facility] [address] [place], [address] Bilirubin.direct [Mass/Vol] 0.62 mg/dL High 0.00-0.30 [facility] Comment on above: Performed By: #### L 501.9910, L500.4100, L500.4050 #### [facility] [address] [place], [address] Globulin (S) [Mass/Vol] 2.3 g/dL Normal 2.2-4.2 [facility] Comment on above: Performed By: #### L 501.9910, L500.4100, L500.4050 #### [facility] [address] [place], [address] T PROT 6.4 g/dL Normal 5.9-8.4 [facility] Comment on above: Performed By: #### L 501.9910, L500.4100, L500.4050 #### [facility] [address] [place], [address] Serum globulin measurementOr dered By: Chris Argueta on 10-23-2024 Globulin (S) [Mass/Vol] 2.3 g/dL 2.2-4.2 [facility] Serum or plasma alanine desai otransferase (ALT) measurementOrdered By: Chris Argueta on 10-23-2024 ALT [Catalytic activity/Vol] 50 U/L High <47 [facility] Serum or plasma albumin hayden urement (mass/volume)Ordered By: Chris Argueta on 10-23-2024 Albumin [Mass/Vol] 4.1 g/dL 3.4-4.8 [facility] Serum or plasma alkaline lobito sphatase measurementOrdered By: Chris Argueta on 10-23-2024 ALP [Catalytic activity/Vol] 141 U/L High 40-129 [facility] Total proteinOrdered By: Arleth Argueta on 10-23-2024 Protein [Mass/Vol] 6.4 g/dL 5.9-8.4 [facility] Venous blood ammonia measure mentOrdered By: Chris Argueta on 10-23-2024 Ammonia (P) [Moles/Vol] 33.2 umol/L 16-60 [facility] Bilirubin directOrdered By: Chris Argueta on 10-10-2024 Bilirubin.direct [Mass/Vol] 1.84 mg/dL High 0.00-0.30 [facility] Bilirubin, totalOrdered By: Chris Argueta on 10-10-2024 Bilirubin [Mass/Vol] 2.40 mg/dL High 0.00-1.30 [facility] Laboratory - Chemistry and C hemistry - challengeOrdered By: Chris Argueta on 10-10-2024 AST [Catalytic activity/Vol] 50 U/L High <38 [facility] Liver Profileon 10-10-2024 Albumin [Mass/Vol] 4.1 g/dL Normal 3.4-4.8 [facility] Comment on above: Performed By: #### L 501.9910, L500.3400 #### [facility] [address] [place], [address] ALK PHOS 282 U/L High 40-129 [facility] Comment on above: Performed By: #### L 501.9910, L500.3400 #### [facility] [address] [place], [address] ALT [Catalytic activity/Vol] 123 U/L High <=46 [facility] Comment on above: Performed By: #### L 501.9910, L500.3400 #### [facility] [address] [place], [address] AST [Catalytic activity/Vol] 50 U/L High <=37 [facility] Comment on above: Performed By: #### L 501.9910, L500.3400 #### [facility] [address] [place], [address] Bilirubin [Mass/Vol] 2.40 mg/dL High 0.00-1.30 [facility] Comment on above: Performed By: #### L 501.9910, L500.3400 #### [facility] [address] [place], [address] Bilirubin.direct [Mass/Vol] 1.84 mg/dL High 0.00-0.30 [facility] Comment on above: Performed By: #### L 501.9910, L500.3400 #### [facility] [address] [place], [address] Globulin (S) [Mass/Vol] 3.2 g/dL Normal 2.2-4.2 [facility] Comment on above: Performed By: #### L 501.9910, L500.3400 #### [facility] [address] [place], [address] T PROT 7.3 g/dL Normal 5.9-8.4 [facility] Comment on above: Performed By: #### L 501.9910, L500.3400 #### [facility] [address] [place], [address] PSA,Total - Annual Screenon 10-10-2024 PSA,TOT SCREEN 1.27 ng/mL Normal 0.02-4.00 [facility] Comment on above: Result Comment: This test was performed using the [employer] tPSA method. Measured values of a patient??sample can vary depending on the testing procedure used. PSA values determined on patient samples by different testing procedures cannot be used interchangeably. If there is a change in PSA assays while monitoring therapy, sequential testing should be performed to confirm baseline values. Performed By: #### L 501.9910, L500.4100, L500.4050 #### [facility] [address] [place], [address] Prostate specific antigen (P SA) screening testOrdered By: Chris Argueta on 10-10-2024 Prostate Specific Antigen Screen 1.27 ng/mL 0.02-4.00 [facility] Comment on above: This test was perfor med using the [employer] tPSA method. Measured values of a patient sample can vary depending on the testing procedure used. PSA values determined on patient samples by different testing procedures cannot be used interchangeably. If there is a change in PSA assays while monitoring therapy, sequential testing should be performed to confirm baseline values. Serum globulin measurementOr dered By: Chris Argueta on 10-10-2024 Globulin (S) [Mass/Vol] 3.2 g/dL 2.2-4.2 [facility] Serum or plasma alanine desai otransferase (ALT) measurementOrdered By: Chris Argueta on 10-10-2024 ALT [Catalytic activity/Vol] 123 U/L High <47 [facility] Serum or plasma albumin hayden urement (mass/volume)Ordered By: Chris Argueta on 10-10-2024 Albumin [Mass/Vol] 4.1 g/dL 3.4-4.8 [facility] Serum or plasma alkaline lobito sphatase measurementOrdered By: Chris Argueta on 10-10-2024 ALP [Catalytic activity/Vol] 282 U/L High 40-129 [facility] Total proteinOrdered By: Arleth Argueta on 10-10-2024 Protein [Mass/Vol] 7.3 g/dL 5.9-8.4 [facility] Hepatitis Panel Acuteon 09-16 COMMENT Comment Normal . [facility] Comment on above: Result Comment: Not infected with HCV unless early or acute infection is suspected (which may be delayed in an immunocompromised individual), or other evidence exists to indicate HCV infection. Performed at: [facility] [address] [id number] Chemical Instrumentation Officer: Anshu Parrish PhD, Phone: [phone] Performed By: #### L 8005.6130 #### [facility] [address] [place], [address] HEP B CORE,IgM Negative Normal Negative [facility] Comment on above: Performed By: #### L 3000.0375 #### [facility] [address] [place], [address] HEP B SURF AG Negative Normal Negative [facility] Comment on above: Performed By: #### L 3000.0375 #### [facility] [address] [place], [address] HEP C VIRUS AB Non-Reactive Normal Non Reactive [facility] Comment on above: Performed By: #### L 3000.0375 #### [facility] [address] [place], [address] HEPATITIS A-IgM Negative Normal Negative [facility] Comment on above: Result Comment: A ne gative anti-HAV IgM result suggests no recent or current HAV infection. Performed By: #### L 3000.0375 #### [facility] [address] [place], [address] Abdomen W/WO IV Contraston 0 - Abdomen W/WO IV Contrast [facility] Services [address] [place] [address] Abdomen W/WO IV Contrast MR#: [id number] Acct: [id number] Name: AILYN IGLESIAS Rep #: [id number] : 1960 M 64 From: Oj juárez MD PCP: Dr. Chris Argueta, Status: REG CLI Study: Abdomen W/WO IV Contrast Date of Exam: 5 Exam# [id number] Ordering Dr: Chris Argueta DO PROCEDURE: ABDOMEN W/WO IV CONTRAST REASON FOR EXAM: Abdominal pain. Jaundice. Vomiting. TECHNIQUE: Abdomen CT without and with intravenous contrast. No oral contrast. IV CONTRAST: 100 cc of Isovue-300. COMPARISON: None. FINDINGS: Lung bases: Mild increased linear markings at the lung bases suggestive of scarring and/or atelectasis. Liver: Diffuse fatty infiltration. Gallbladder: Several calcified gallstones. Spleen: Unremarkable. Pancreas: Unremarkable. Adrenals: Unremarkable. Kidneys: Bilateral parapelvic cysts more prominent on the left side. No evidence of hydronephrosis. Bowel: Visualized loops of bowel in the upper abdomen are unremarkable. Lymph nodes: No suspicious lymph node enlargement. Vasculature: Mild diffuse atherosclerotic calcifications are noted. Peritoneum / Retroperitoneum: No ascites or free air at the upper abdomen. Bones: Degenerative changes of the spine. CT/Abdomen W/WO IV Contrast IMPRESSION: Diffuse fatty infiltration of the liver. Multiple gallstones. One or more dose reduction techniques were used (e.g., Automated exposure control, adjustment of the mA and/or kV according to patient size, use of iterative reconstruction technique). Reading Location: [place] [address] CC: Dr. Chris Argueta DO Brusher Machine: Signed Normal [facility] Absolute neutrophil countOrd ered By: Chris Argueta on 10-05-2024 Neutrophils (Bld) [#/Vol] 3.8 10*3/uL 2.0-7.7 [facility] Albumin to globulin ratioOrd ered By: Chris Argueta on 10-05-2024 Albumin/Globulin [Mass ratio] 0.8 {ratio} Low 0.9-2.4 [facility] Basophil percentageOrdered B y: Chris Argueta on 10-05-2024 Basophils/100 WBC (Bld) 0.7 % 0-1 [facility] Bilirubin, totalOrdered By: Chris Argueta on 10-05-2024 Bilirubin [Mass/Vol] 9.60 mg/dL High 0.20-1.00 [facility] Comment on above: For patients on eltr ombopag therapy, use of Dimension Cosby TBIL is not recommended. Blood urea nitrogen (BUN)/cr eatinine ratioOrdered By: Chris Argueta on 10-05-2024 Urea nitrogen/Creatinine [Mass ratio] 16.8 mg/mg 10-20 [facility] CBC W/Diff, Automatedon 09-16 Absolute Lymph 0.98 X10 3/uL Normal 0.83-4.51 [facility] Comment on above: Performed By: #### L 500.4050, L501.2450, L100.0100 #### [facility] [address] [place], [address] Absolute Neut 3.8 X10 3/uL Normal 2.0-7.7 [facility] Comment on above: Performed By: #### L 500.4050, L501.2450, L100.0100 #### [facility] [address] [place], [address] Basophils/100 WBC (Bld) 0.7 % Normal 0-1 [facility] Comment on above: Performed By: #### L 500.4050, L501.2450, L100.0100 #### [facility] [address] [place], [address] Eosinophils/100 WBC (Bld) 1.6 % Normal 0-5 [facility] Comment on above: Performed By: #### L 500.4050, L501.2450, L100.0100 #### [facility] [address] [place], [address] Erythrocyte distribution width (RBC) [Ratio] 13.5 % Normal 11.6-14.6 [facility] Comment on above: Performed By: #### L 500.4050, L501.2450, L100.0100 #### [facility] [address] [place], [address] Hematocrit (Bld) [Volume fraction] 44.2 % Normal 40-54 [facility] Comment on above: Performed By: #### L 500.4050, L501.2450, L100.0100 #### [facility] [address] [place], [address] Hemoglobin (Bld) [Mass/Vol] 14.9 g/dL Normal 13.0-16.5 [facility] Comment on above: Performed By: #### L 500.4050, L501.2450, L100.0100 #### [facility] Laboratory [address] [place], [address] IG% 0.700 Normal 0.0-0.9 [facility] Comment on above: Result Comment: IG% - Immature Granulocytes (promyelocytes, myelocytes and metamyelocytes) > 1% indicates that a LEFT SHIFT is Present. Performed By: #### L 500.4050, L501.2450, L100.0100 #### [facility] Laboratory [address] [place], [address] Lymphocytes/100 WBC (Bld) 17.4 % Low 19-41 [facility] Comment on above: Performed By: #### L 500.4050, L501.2450, L100.0100 #### [facility] Laboratory [address] [place], [address] MCH (RBC) [Entitic mass] 31.2 pg Normal 27.0-32.0 [facility] Comment on above: Performed By: #### L 500.4050, L501.2450, L100.0100 #### [facility] Laboratory [address] [place], [address] MCHC (RBC) [Mass/Vol] 33.7 g/dL Normal 32-36 [facility] Comment on above: Performed By: #### L 500.4050, L501.2450, L100.0100 #### [facility] Laboratory [address] [place], [address] MCV (RBC) [Entitic vol] 92.5 fL Normal 80-94 [facility] Comment on above: Performed By: #### L 500.4050, L501.2450, L100.0100 #### [facility] Laboratory [address] [place], [address] Monocytes/100 WBC (Bld) 11.4 % High 0-10 [facility] Comment on above: Performed By: #### L 500.4050, L501.2450, L100.0100 #### [facility] Laboratory [address] [place], [address] Neutrophils/100 WBC (Bld) 68.2 % Normal 47-70 [facility] Comment on above: Performed By: #### L 500.4050, L501.2450, L100.0100 #### [facility] Laboratory [address] [place], [address] Nucleated RBC (Bld) [#/Vol] 0 10*3/uL Normal 0-5 [facility] Comment on above: Performed By: #### L 500.4050, L501.2450, L100.0100 #### [facility] Laboratory [address] [place], [address] Platelet mean volume (Bld) [Entitic vol] 9.9 fL Normal 6.2-12.0 [facility] Comment on above: Performed By: #### L 500.4050, L501.2450, L100.0100 #### [facility] Laboratory [address] [place], [address] Platelets (Bld) [#/Vol] 323 10*3/uL Normal 150-450 [facility] Comment on above: Performed By: #### L 500.4050, L501.2450, L100.0100 #### [facility] Laboratory [address] [place], [address] RBC (Bld) [#/Vol] 4.78 10*6/uL Normal 4.6-6.2 [facility] Comment on above: Performed By: #### L 500.4050, L501.2450, L100.0100 #### [facility] Laboratory [address] [place], [address] RDW SD 46.3 fl High 35.1-43.9 [facility] Comment on above: Performed By: #### L 500.4050, L501.2450, L100.0100 #### [facility] Laboratory [address] [place], [address] WBC (Bld) [#/Vol] 5.6 10*3/uL Normal 4.4-11.0 [facility] Comment on above: Performed By: #### L 500.4050, L501.2450, L100.0100 #### [facility] Laboratory [address] [place], [address] CREATININE FINGERSTICKon CREATININE WB < 1.0 Normal 0.70-1.30 [facility] Comment on above: Performed By: #### L 9100.0200 #### [facility] Laboratory [address] [place], [address] EGFR WB > 60.0000 Normal >60 [facility] Comment on above: Performed By: #### L 9100.0200 #### [facility] Laboratory [address] [place], [address] Carbon dioxide measurementOr dered By: Chris Argueta on 10-05-2024 CO2 [Moles/Vol] 22.0 mmol/L 21.0-32.0 [facility] Chloride measurementOrdered By: Chris Argueta on 10-05-2024 Chloride [Moles/Vol] 99 mmol/L 98-107 [facility] Comprehensive Metabolic Prof ilon 10-05-2024 Albumin [Mass/Vol] 3.2 g/dL Normal 3.2-5.0 [facility] Comment on above: Performed By: #### L 500.4050, L501.2450, L100.0100 #### [facility] Laboratory [address] [place], [address] Albumin/Globulin [Mass ratio] 0.8 {ratio} Low 0.9-2.4 [facility] Comment on above: Performed By: #### L 500.4050, L501.2450, L100.0100 #### [facility] Laboratory [address] [place], [address] ALK P 286 U/L High 45-117 [facility] Comment on above: Performed By: #### L 500.4050, L501.2450, L100.0100 #### [facility] Laboratory [address] [place], [address] ALT [Catalytic activity/Vol] 191 U/L High 16-61 [facility] Comment on above: Performed By: #### L 500.4050, L501.2450, L100.0100 #### [facility] Laboratory [address] [place], [address] AST [Catalytic activity/Vol] 69 U/L High 15-37 [facility] Comment on above: Result Comment: Slig ht Hemolysis, Result may be falsely increased. Performed By: #### L 500.4050, L501.2450, L100.0100 #### [facility] Laboratory [address] [place], [address] Bilirubin [Mass/Vol] 9.60 mg/dL High 0.20-1.00 [facility] Comment on above: Result Comment: For patients on eltrombopag therapy, use of Dimension Cosby TBIL is not recommended. Performed By: #### L 500.4050, L501.2450, L100.0100 #### [facility] Laboratory [address] [place], [address] BUN/CRE 16.8 RATIO Normal 10-20 [facility] Comment on above: Performed By: #### L 500.4050, L501.2450, L100.0100 #### [facility] Laboratory [address] [place], [address] CA,Total 9.7 mg/dL Normal 8.5-10.1 [facility] Comment on above: Performed By: #### L 500.4050, L501.2450, L100.0100 #### [facility] Laboratory [address] [place], [address] Chloride [Moles/Vol] 99 mmol/L Normal 98-107 [facility] Comment on above: Performed By: #### L 500.4050, L501.2450, L100.0100 #### [facility] Laboratory [address] [place], [address] CO2 [Moles/Vol] 22.0 mmol/L Normal 21.0-32.0 [facility] Comment on above: Performed By: #### L 500.4050, L501.2450, L100.0100 #### [facility] Laboratory [address] [place], [address] Creatinine [Mass/Vol] 1.01 mg/dL Normal 0.70-1.30 [facility] Comment on above: Result Comment: The validity of the calculated GFR GFRAA in patients over 70 years has not been determined. Clinical correlation is essential. Performed By: #### L 500.4050, L501.2450, L100.0100 #### [facility] Laboratory [address] [place], [address] EST GFR - AA 96 mL/min Normal >60 [facility] Comment on above: Result Comment: Afri can Togolese GFR Calc Performed By: #### L 500.4050, L501.2450, L100.0100 #### [facility] Laboratory [address] [place], [address] GAP 10 Normal 5-15 [facility] Comment on above: Performed By: #### L 500.4050, L501.2450, L100.0100 #### [facility] Laboratory [address] [place], [address] GFR/1.73 sq M.predicted among non-blacks MDRD (S/P/Bld) [Vol rate/Area] 79 mL/min/{1.73_m2} Normal >60 [facility] Comment on above: Result Comment: Non- GFR Calc Performed By: #### L 500.4050, L501.2450, L100.0100 #### [facility] Laboratory [address] [place], [address] Globulin (S) [Mass/Vol] 4.0 g/dL Normal 2.2-4.2 [facility] Comment on above: Performed By: #### L 500.4050, L501.2450, L100.0100 #### [facility] Laboratory [address] [place], [address] Glucose [Mass/Vol] 279 mg/dL High 74-106 [facility] Comment on above: Result Comment: Gluc ose result greater than or equal to 200 mg/dL suggests DIABETES MELLITUS per A.D.A. criteria. Performed By: #### L 500.4050, L501.2450, L100.0100 #### [facility] Laboratory [address] [place], [address] Potassium [Moles/Vol] 4.0 mmol/L Normal 3.5-5.1 [facility] Comment on above: Result Comment: Slig ht Hemolysis, Result may be falsely increased. Performed By: #### L 500.4050, L501.2450, L100.0100 #### [facility] Laboratory [address] [place], [address] Sodium [Moles/Vol] 132 mmol/L Low 136-145 [facility] Comment on above: Performed By: #### L 500.4050, L501.2450, L100.0100 #### [facility] Laboratory [address] [place], [address] T PROT 7.2 g/dL Normal 6.4-8.2 [facility] Comment on above: Performed By: #### L 500.4050, L501.2450, L100.0100 #### [facility] Laboratory [address] [place], [address] Urea nitrogen [Mass/Vol] 17 mg/dL Normal 7-18 [facility] Comment on above: Performed By: #### L 500.4050, L501.2450, L100.0100 #### [facility] Laboratory [address] [place], [address] Creatinine measurement at dsideOrdered By: Chris Argueta on 10-05-2024 Bedside Creatinine < 1.0 mg/dL 0.70-1.30 [facility] EGFROrdered By: Chris capone on 10-05-2024 Bedside Estimated GFR (eGFR) > 60.0000 mL/min >60 [facility] Eosinophil percentageOrdered By: Chris Argueta on 10-05-2024 Eosinophils/100 WBC (Bld) 1.6 % 0-5 [facility] Erythrocyte distribution wid th ratioOrdered By: Chris Argueta on 10-05-2024 Erythrocyte distribution width (RBC) [Ratio] 13.5 % 11.6-14.6 [facility] Erythrocyte distribution wid th standard deviationOrdered By: Chris Argueta on 10-05-2024 Erythrocyte distribution width (RBC) [Entitic vol] 46.3 fL High 35.1-43.9 [facility] Estimated glomerular filtrat ion rate (GFR) AmericanOrdered By: Chris Argueta on 10-05-2024 Estimated GFR (MDRD) Amer 96 mL/min >60 [facility] Comment on above: GFR Calc Glomerular filtration rate ( GFR) estimationOrdered By: Chris Argueta on 10-05-2024 Estimated GFR (MDRD) Non-Af Amer 79 mL/min >60 [facility] Comment on above: Non- GFR Calc Glucose measurementOrdered B y: Chris Argueta on 10-05-2024 Glucose [Mass/Vol] 279 mg/dL High 74-106 [facility] Comment on above: Glucose result great er than or equal to 200 mg/dLsuggests DIABETES MELLITUS per A.D.A. criteria. HBV surface Ag IA QlOrdered By: Chris Argueta on 10-05-2024 Hepatitis B Surface Antigen Negative Negative [facility] Hematocrit Auto (Bld) [Volum e fraction]Ordered By: Chris Argueta on 10-05-2024 Hematocrit (Bld) [Volume fraction] 44.2 % 40-54 [facility] Hemoglobin measurementOrdere d By: Chris Argueta on 10-05-2024 Hemoglobin (Bld) [Mass/Vol] 14.9 g/dL 13.0-16.5 [facility] Hepatitis A virus IgM antibo dy assayOrdered By: Chris Argueta on 10-05-2024 Hepatitis A IgM Antibody Negative Negative [facility] Comment on above: A negative anti-HAV IgM result suggests no recent orcurrent HAV infection. Hepatitis B virus core IgM a ntibody assayOrdered By: Chris Argueta on 10-05-2024 Hepatitis B Core IgM Antibody Negative Negative [facility] Hepatitis C virus antibody a ssayOrdered By: Chris Argueta on 10-05-2024 Hepatitis C Antibody (EIA) Non-Reactive Non Reactive [facility] Immature granulocytes/100 WB C Auto (Bld)Ordered By: Chris Argueta on 10-05-2024 Immature granulocytes/100 WBC (Bld) 0.700 % 0.0-0.9 [facility] Comment on above: IG% - Immature Granu locytes (promyelocytes, myelocytes and metamyelocytes) > 1% indicates that a LEFT SHIFT is Present. Laboratory - Chemistry and C hemistry - challengeOrdered By: Chris Argueta on 10-05-2024 AST [Catalytic activity/Vol] 69 U/L High 15-37 [facility] Comment on above: Slight Hemolysis, Re sult may be falsely increased. Lipaseon 10-05-2024 Lipase [Catalytic activity/Vol] 16 U/L Low 73-393 [facility] Comment on above: Performed By: #### L 500.4050, L501.2450, L100.0100 #### [facility] Laboratory [address] [place], [address] Lipase measurementOrdered By : Chris Argueta on 10-05-2024 Lipase [Catalytic activity/Vol] 16 U/L Low 73-393 [facility] Lymphocytes Auto (Unsp spec) [#/Vol]Ordered By: Chris Argueta on 10-05-2024 Lymphocytes (Bld) [#/Vol] 0.98 10*3/uL 0.83-4.51 [facility] Lymphocytes/100 WBC Auto (Un sp spec)Ordered By: Chris Argueta on 10-05-2024 Lymphocytes/100 WBC (Bld) 17.4 % Low 19-41 [facility] MCV (mean corpuscular volume ) determinationOrdered By: Chris Argueta on 10-05-2024 MCV (RBC) [Entitic vol] 92.5 fL 80-94 [facility] Mean corpuscular hemoglobin (MCH) determinationOrdered By: Chris Argueta on 10-05-2024 MCH (RBC) [Entitic mass] 31.2 pg 27.0-32.0 [facility] Mean corpuscular hemoglobin concentration (MCHC) determinationOrdered By: Chris Argueta on 10-05-2024 MCHC (RBC) [Mass/Vol] 33.7 g/dL 32-36 [facility] Mean platelet volume determi nationOrdered By: Chris Argueta on 10-05-2024 Platelet mean volume (Bld) [Entitic vol] 9.9 fL 6.2-12.0 [facility] Monocyte percentageOrdered B y: Chris Argueta on 10-05-2024 Monocytes/100 WBC (Bld) 11.4 % High 0-10 [facility] Neutrophil percentageOrdered By: Chris Argueta on 10-05-2024 Neutrophils/100 WBC (Bld) 68.2 % 47-70 [facility] No Panel InformationOrdered By: Chris Argueta on 10-05-2024 Hepatitis C Antibody Comment Comment . [facility] Comment on above: Not infected with HC V unless early or acute infection issuspected (which may be delayed in an immunocompromisedindividual), or other evidence exists to indicate HCVinfection.Performed at: [address] [id number] Director: Anshu Parrish PhD, Phone: [phone] Nucleated red blood cell per centageOrdered By: Chris Argueta on 10-05-2024 Nucleated RBC/100 WBC (Bld) [Ratio] 0 % 0-5 [facility] Platelet countOrdered By: Zoe Argueta on 10-05-2024 Platelets (Bld) [#/Vol] 323 10*3/uL 150-450 [facility] Potassium measurementOrdered By: Chris Argueta on 10-05-2024 Potassium [Moles/Vol] 4.0 mmol/L 3.5-5.1 [facility] Comment on above: Slight Hemolysis, Re sult may be falsely increased. RBC Auto (Bld) [#/Vol]Ordere d By: Chris Argueta on 10-05-2024 RBC (Bld) [#/Vol] 4.78 10*6/uL 4.6-6.2 [facility] Serum anion gap measurementO rdered By: Chris Argueta on 10-05-2024 Anion gap [Moles/Vol] 10 mmol/L 5-15 [facility] Serum globulin measurementOr dered By: Chris Argueta on 10-05-2024 Globulin (S) [Mass/Vol] 4.0 g/dL 2.2-4.2 [facility] Serum or plasma alanine desai otransferase (ALT) measurementOrdered By: Chris Argueta on 10-05-2024 ALT [Catalytic activity/Vol] 191 U/L High 16-61 [facility] Serum or plasma albumin hayden urement (mass/volume)Ordered By: Chris Argueta on 10-05-2024 Albumin [Mass/Vol] 3.2 g/dL 3.2-5.0 [facility] Serum or plasma alkaline lobito sphatase measurementOrdered By: Chris Argueta on 10-05-2024 ALP [Catalytic activity/Vol] 286 U/L High 45-117 [facility] Serum or plasma calcium hayden urement (mass/volume)Ordered By: Chris Argueta on 10-05-2024 Calcium [Mass/Vol] 9.7 mg/dL 8.5-10.1 [facility] Serum or plasma creatinine m easurement (mass/volume)Ordered By: Chris Argueta on 10-05-2024 Creatinine [Mass/Vol] 1.01 mg/dL 0.70-1.30 [facility] Comment on above: The validity of the calculated GFR & GFRAA in patients over 70 years has not been determined. Clinical correlation is essential. Serum or plasma urea nitroge n measurement (mass/volume)Ordered By: Chris Argueta on 10-05-2024 Urea nitrogen [Mass/Vol] 17 mg/dL 7-18 [facility] Sodium levelOrdered By: Chris Argueta on 10-05-2024 Sodium [Moles/Vol] 132 mmol/L Low 136-145 [facility] Total proteinOrdered By: Arleth Argueta on 10-05-2024 Protein [Mass/Vol] 7.2 g/dL 6.4-8.2 [facility] White blood cell (WBC) count Ordered By: Chris Argueta on 10-05-2024 WBC (Bld) [#/Vol] 5.6 10*3/uL 4.4-11.0 [facility] Encounters Encounter Date Encounter Type Care Provider Facility Start: 05-22-2025 ambulatory Health Risk Assessment Facility:[facility] Start: 10-23-2024 End: 10-23-[address] Chris Argueta DO Work Phone: [facility] Work Phone: Start: 10-23-2024 End: 10-23-[address] Chris Argueta DO -Laboratory Work Phone: Start: 10-23-2024 End: 10-23-2024 ambulatory Chris Argueta Facility:[facility] Start: 10-10-2024 End: 10-10-[address] Chris Argueta DO Work Phone: [facility] Work Phone: Start: 10-10-2024 End: 10-10-[address] Chris Argueta DO -Laboratory Work Phone: Start: 10-10-2024 End: 10-10-2024 ambulatory Chris Argueta Facility:[facility] Start: 10-05-2024 End: 10-05-[address] Chris Argueta DO -Cat Scan, [facility] Work Phone: Start: 10-05-2024 End: 10-05-2024 ambulatory Chris Kendall Facility:[facility] Start: 11-10-2023 End: 11-10-2023 ambulatory [facility] Work Phone: Start: 11-10-2023 End: 11-10-2023 Discharged Recurring [facility]-Physical Therapy Work Phone: Start: 07-14-2023 Registered Recurring [facility] Work Phone: Procedures Date Procedure Procedure Detail Performing Clinician Start: 10-05-2024 CT of abdomen with contrast Dr. Chris Argueta DO Work Phone: Plan of Treatment Date Care Activity Detail Author Start: 10-23-2024 Gamma glutamyl trans ferase measurement [facility] Immunizations Immunization Date Immunization Notes Care Provider Fa cility 11-14-2020 Covid (Pfizer) [facility] 10-24-2020 Covid (Pfizer) [facility] Payers Date Payer Category Payer Self-pay [id number] 2014 Unknown [id number] Unknown [employer] [id number] [facility] [id number] Unknown [id number] Unknown [id number] Unknown [id number] Unknown [id number] Social History Date Type Detail [facility] Work Phone: Start: 1960 Sex Assigned At Male [facility] Work Phone: Start: 10-23-2024 End: 10-31-2024 Sex Male (finding) [facility] Discharge summary 11-10-2023 Note Date & Type Note Facility 11-10-2023 Discharge summary Note Date/Time November 10, 2023 6:02pm [facility] Physical Therapy [facility] [address] [place] [address] / REHABILITATION SERVICES DISCHARGE SUMMARY MR#: [id number] Acct: [id number] Name: AILYN IGLESIAS Rep #: [id number] : 1960 63 From: Cert. LEOLA Schwab, OCS Referring : Status: REG R Insurance: [facility] S[employer] PAY INSURANCE Discharge Summary D/C summary: It has been my pleasure to treat AILYN IGLESIAS referred by FALLON GARCIA, with the diagnosis of OTHER INTERERTEBRAL DISC DISPLACEMENT LUMBAR REGION for a total of 10 visit(s). Discharge Date: Please see the following information for a summary of their discharge status. Subjective Subjective: October 31 dont need to see Dr mooney to d/c Patient ready for d/c Pain Bilateral Back: Pain Intensity (Out of 10): 1 Overall Improvement % Improvement: 90 Objective Objective/Function: POSTURE: mild forward posture GAIT: reciprocal pattern 2 point gait slow all SKIN: incision well approximate NEURO: denies paresthesia/tingling ,reflexes L3-4,L4-5,L5-S1 1/3 SYMMTRIES: align MMT: quads/hams 4/5 ,ankle 5/5 ,( peak force) hip flexion right 44.5 ,left 438 FLEXABILITY: hamstrings min tight LUMBAR ROM: flexion min loss ,extension min loss ,side glides min glides Goals Goal 1:: Patient to be I with HEP Goal Progress: Goal Met Goal 2:: Patient to improve lumbar ROM for function of recovery to tie shoes andADLS Goal Progress: Goal Met Goal 3:: Patient to improve back oswestry score by 5 points to improve QOL and function Goal Progress: Goal Met Goal 4:: Patient to demonstrate 50% improvement with less pain and improved function Goal Progress: Goal Met Goal 5:: Patient to improve peak force of hips by 5-10# to improve function and ADLS Goal Progress: Progressing Plan Plan: D/C D/C Information d/c sentence: If there are questions or concerns regarding this patient's physical therapy, please feel free to call me at [phone]. Thank you for the referral of thispatient. Sincerely, Francesco Avery PT, Cert MDT, OCS Balance/Gait/Functional tests Balance/Special Test Scores Oswestry Low Back Score: 3 Improvement % Improvement: 90 <Electronically signed by Francesco Avery PT, Cert. MDT, OCS> 11/10/23 1802 CC: Dr. Chris Argueta DO; FALLON GARCIA ~ JLA Signed [facility] Work Phone: Evaluation note Note Date & Type Note Facility Evaluation note No assessment information availa ble [facility] Work Phone: Reason for referral (narrative) Note Date & Type Note Facility Reason for referral (narrative) No reason for referral information available [facility] Work Phone: Chief Complaint and Reason for Visit Chief Complaint LBP. RX HERE DISC DISPLACEMENT LUMBAR. RX HERE Chief Complaint DISC DISPLACEMENT ALBERT MBAR. RX HERE Chief Complaint Admit Date ABD PAIN, JAUNDICE October 05, 2024 1:41pm Summary Purpose Family History No Family History Records Found [facility] Directives No Advanced Directives Records Found Additional Source Comments Care Teams (unrecognized sec tion and content) Team Status: Active Member Role Status Dates Dr. Chris Argueta DO Family Provider Active Dr. Chris Argueta DO Primary Care Provider Active Team Status: Active Member Role Status Dates Dr. Chris Argueta DO Primary Care Prov ider, Attending Provider, Referring Provider Active Team Status: Inactive Member Role Status Dates Dr. Chris Argueta DO Primary Care Provider Active RADHA LEHMAN Attending Provider Active Team Status: Active Member Role Status Dates Dr. Chris Argueta DO Primary Care Provider Active Team Status: Inactive Member Role Status Dates Dr. Chris Argueta DO Primary Care Provider Active Start: October 05, 2024 End: October 05, 2024 Dr. Chris Argueta DO Attending Provider Active Start: October 05, 2024 End: October 05, 2024 Dr. Chris Argueta DO Referring Provider Active Start: October 05, 2024 End: October 05, 2024 Team Status: Inactive Member Role Status Dates Dr. Chris Argueta DO Primary Care Provider Active Start: October 10, 2024 End: October 10, 2024 Dr. Chris Argueta DO Attending Provider Active Start: October 10, 2024 End: October 10, 2024 Dr. Chris Argueta DO Referring Provider Active Start: October 10, 2024 End: October 10, 2024 Team Status: Active Member Role Status Dates Dr. Chris Argueta DO Primary Care Provider Active Start: October 23, 2024 Dr. Chris Argueta DO Attending Provider Active Start: October 23, 2024 Dr. Chris Argueta DO Referring Provider Active Start: October 23, 2024 Team Status: Inactive Member Role Status Dates Dr. Chris Argueta DO Primary Care Provider Active Start: October 23, 2024 End: October 23, 2024 Dr. Chris Argueta DO Attending Provider Active Start: October 23, 2024 End: October 23, 2024 Dr. Chris Argueta DO Referring Provider Active Start: October 23, 2024 End: October 23, 2024 Goals (unrecognized section and content) Goals may be documented in a n alternate sectionGoals may be documented in an alternate sectionGoals may be documented in an alternate sectionGoals may be documented in an alternate section (unrecognized sect ion and content) No Status Records Found INFORMATION SOURCE (unrecogn ized section and content) DATE CREATED AUTHOR 05/24/2025 [facility] FOR RECORDS PERTAINING TO PATIENTS WHO ARE OR HAVE BEEN ENROLLED IN A CHEMICAL DEPENDENCY/SUBSTANCEABUSE PROGRAM, SOME INFORMATION MAY BE OMITTED. This clinical summary was aggregated from multiple sources. Caution should be exercised in using it in the provision of clinical care. This summary normalizes information from multiple sources, and as a consequence, information in this document may materially change the coding, format and clinical context of patient data. In addition, data may be omitted in some cases. CLINICAL DECISIONS SHOULD BE BASED ON THE PRIMARY CLINICAL RECORDS. [employer] [facility]. provides no warranty or guarantee of the accuracy or completeness of information in this document.
== END | disposition home or self-care (01) ==
LOC: LABSPEC 12:58
PROVIDERS: PCP Family Medicine; Referring Provider Nurse Practitioner; Visit Provider Nurse Practitioner
DX: J45.50 Severe persistent asthma, uncomplicated (principal)
CPT/HCPCS: 85025